=== PATIENT | female | born 1960 | race Hispanic/Latino ===

== ENCOUNTER → 2021-08-15 | Outpatient (CLI) | payer BC ==
[~2021-08-15] MED LIST: IOPAMIDOL 370 MG/ML 200 ML INFUS..BTL INJ ONE; SODIUM CHLORIDE 0.9% 250ML 250 ML ONE
[2021-08-15 16:04] LABS: CREATININE, SERUM 0.92 mg/dL (0.57-1.11)
== END ==
LOC: CT 15:07
PROVIDERS: ATTEND Urology
DX: R31.0 Gross hematuria (principal)
CPT/HCPCS: 36415; 74178; 82565; 84520; J7050; Q9967